=== PATIENT | female | born 1975 | race Hispanic/Latino ===

== ENCOUNTER 2021-12-14 23:20 | Emergency (ER) | payer OTHER ==
--- OUTSIDE RECORDS SUMMARY | 2021-12-14 23:25 | XMS REPORT | Continuity of Care Document ---
:1975 Author Organization [facility] t Address [facility] [address] [place] [address] Care Team Providers Name Role Phone LAZARO Primary Care Physician Unavailable Lazaro Attending Clinician Unavailable Shane Attending Clinician Unavailable Alivia Rose Attending Clinician Unavailable MATTI Attending Clinician Unavailable Matti ALFARO Attending Clinician Doctor Unassigned, Name Attending Clinician Unavailable Jose SHAIKH, L Attending Clinician Unavailable EBRAHIM Attending Clinician Unavailable Only, Db Test Attending Clinician Unavailable Unknown Attending Clinician Unavailable Radiology Attending Clinician Unavailable RADIOLOGY Attending Clinician Unavailable Jose Angel ALFARO Attending Clinician Yany ALFARO M Attending Clinician Pob1, Care Clinic Attending Clinician Unavailable JOSE ANGEL Attending Clinician Unavailable MATTI Admitting Clinician Unavailable Payers Payer Name Policy Type Policy Number Effective Date Expiration Date S jasen RODNEY FROM [id number] 2021 [facility] 00:00:00 Problems Condition Condition Condition Status Onset Resolution Last Treating Co mments Source Name Details Category Date Date Treatment Clinician Date No known No known Disease Unive rs active active ity of problems problems [facility] Allergies, Adverse Reactions, Alerts Allergy Allergy Status Severity Reaction(s) Onset Inactive Treating Comm ents Source Name Type Date Date Clinician NO KNOWN Drug Active Univers ALLERGIE Class ity of S [facility] Social History Social Habit Start Date Stop Date Quantity Comments Source Exposure to Not sure [facility] SARS-CoV-2 (event) Medica l Branch Tobacco use and 2020-01-14 2020-01-14 Never used [facility] exposure 00:00:00 00:00:00 Medical Branch Sex Ass[birth year] [facility] 00:00:00 00:00:00 Medical Branch Smoking Status Start Date Stop Date Source Never smoker [facility] Unknown if ever smoked [facility] Medications Ordered Filled Start Stop Current Ordering Indication Dosage Frequency Signature Comments Components Source Medication Medication Date Date Medication? Clinician (SIG) Name Name iopamidol 2021- No [id number] 100mL 100 mL, Univers (ISOVUE 11-24 Intravenou ity o f 370-500 mL) 11:15: 10:05 s, ONCE, 1 [place] injection 00 :00 dose, On Medica l 100 mL Fri Branch 11/24/21 at 0515, Routine morpHINE 2021- No 4mg 4 mg, Slow Un zana injection 4 11-24 IV Push, ity of mg 09:30: 08:33 ONCE, 1 [place] 00 :00 dose, On Medical Fri Branch 11/24/21 at 0330, STAT ondansetron 2021- No 4mg 4 mg, Slow Univers (ZOFRAN 11-24 IV Push, ity of (PF)) 09:30: 08:33 ONCE, 1 [place] injection 4 00 :00 dose, On Medi ivan mg Fri Branch 11/24/21 at 0330, KATIE NaCl 0.9% 2021- No 1000mL at 999 Uni vers (NS) bolus 11-24 mL/hr, ity of infusion 09:30: 10:35 1,000 mL, Rick as 1,000 mL 00 :00 IV Medical Infusion, Branch ONCE, 1 dose, On 11/24/21 at 0330, KATIE ondansetron Yes [id number] 4mg Take 1 Univers 4 mg 11-24 tablet by ity of disintegrat 00:00: mouth [place] ing tablet 00 every 4 Medica l (four) Branch hours as needed for Nausea and Vomiting (N/V). pantoprazol Yes [id number] 40mg Take 1 Univers e 2-11 tablet by ity of (PROTONIX) 00:00: mouth [place] 40 mg EC 00 daily. Medical tablet Branch cetirizine 2019-0 Yes [id number] 10mg Take 1 U nivers (ZYRTEC) 10 4-02 tablet by ity of mg tablet 00:00: mouth [place] 00 daily. Medical Branch fluticasone 2019-0 Yes [id number] 1{spray Use 1 Univers propionate 4-02 } [place] in ity o f 50 00:00: each [place] mcg/actuati 00 nostril Medic al on nasal daily. Branch spray montelukast 2019-0 Yes [id number] 10mg Take 1 Univers (SINGULAIR) 4-02 tablet by ity of 10 mg 00:00: mouth [place] tablet 00 daily. Medical Branch cetirizine 2019-0 Yes [id number] 10mg Take 1 U nivers (ZYRTEC) 10 4-02 tablet by ity of mg tablet 00:00: mouth [place] 00 daily. Medical Branch fluticasone 2019-0 Yes [id number] 1{spray Use 1 Univers propionate 4-02 } [place] in ity o f 50 00:00: each [place] mcg/actuati 00 nostril Medic al on nasal daily. Branch spray montelukast 2019-0 Yes [id number] 10mg Take 1 Univers (SINGULAIR) 4-02 tablet by ity of 10 mg 00:00: mouth [place] tablet 00 daily. Medical Branch cetirizine 2019-0 Yes [id number] 10mg Take 1 U nivers (ZYRTEC) 10 4-02 tablet by ity of mg tablet 00:00: mouth [place] 00 daily. Medical Branch fluticasone 2019-0 Yes [id number] 1{spray Use 1 Univers propionate 4-02 } [place] in ity o f 50 00:00: each [place] mcg/actuati 00 nostril Medic al on nasal daily. Branch spray montelukast 2019-0 Yes [id number] 10mg Take 1 Univers (SINGULAIR) 4-02 tablet by ity of 10 mg 00:00: mouth [place] tablet 00 daily. Medical Branch cetirizine 2019-0 Yes [id number] 10mg Take 1 U nivers (ZYRTEC) 10 4-02 tablet by ity of mg tablet 00:00: mouth [place] 00 daily. Medical Branch fluticasone 2020-0 Yes [id number] 1{spray Use 1 Univers propionate 4-02 } [place] in ity o f 50 00:00: each [place] mcg/actuati 00 nostril Medic al on nasal daily. Branch spray montelukast 2020-0 Yes [id number] 10mg Take 1 Univers (SINGULAIR) 4-02 tablet by ity of 10 mg 00:00: mouth [place] tablet 00 daily. Medical Branch cetirizine 2020-0 Yes [id number] 10mg Take 1 U nivers (ZYRTEC) 10 4-02 tablet by ity of mg tablet 00:00: mouth [place] 00 daily. Medical Branch fluticasone 2020-0 Yes [id number] 1{spray Use 1 Univers propionate 4-02 } [place] in ity o f 50 00:00: each [place] mcg/actuati 00 nostril Medic al on nasal daily. Branch spray montelukast 2020-0 Yes [id number] 10mg Take 1 Univers (SINGULAIR) 4-02 tablet by ity of 10 mg 00:00: mouth [place] tablet 00 daily. Medical Branch cetirizine 2020-0 Yes [id number] 10mg Take 1 U nivers (ZYRTEC) 10 4-02 tablet by ity of mg tablet 00:00: mouth [place] 00 daily. Medical Branch fluticasone 2020-0 Yes [id number] 1{spray Use 1 Univers propionate 4-02 } [place] in ity o f 50 00:00: each [place] mcg/actuati 00 nostril Medic al on nasal daily. Branch spray montelukast 2020-0 Yes [id number] 10mg Take 1 Univers (SINGULAIR) 4-02 tablet by ity of 10 mg 00:00: mouth [place] tablet 00 daily. Medical Branch cetirizine 2020-0 Yes [id number] 10mg Take 1 U nivers (ZYRTEC) 10 4-02 tablet by ity of mg tablet 00:00: mouth [place] 00 daily. Medical Branch fluticasone 2020-0 Yes [id number] 1{spray Use 1 Univers propionate 4-02 } [place] in ity o f 50 00:00: each [place] mcg/actuati 00 nostril Medic al on nasal daily. Branch spray montelukast 2020-0 Yes [id number] 10mg Take 1 Univers (SINGULAIR) 4-02 tablet by ity of 10 mg 00:00: mouth [place] tablet 00 daily. Medical Branch cetirizine 2020-0 Yes [id number] 10mg Take 1 U nivers (ZYRTEC) 10 4-02 tablet by ity of mg tablet 00:00: mouth [place] 00 daily. Medical Branch fluticasone 2020-0 Yes [id number] 1{spray Use 1 Univers propionate 4-02 } [place] in ity o f 50 00:00: each [place] mcg/actuati 00 nostril Medic al on nasal daily. Branch spray montelukast 2020-0 Yes [id number] 10mg Take 1 Univers (SINGULAIR) 4-02 tablet by ity of 10 mg 00:00: mouth [place] tablet 00 daily. Medical Branch cetirizine 2019-0 Yes [id number] 10mg Take 1 U nivers (ZYRTEC) 10 4-02 tablet by ity of mg tablet 00:00: mouth [place] 00 daily. Medical Branch fluticasone 2020-0 Yes [id number] 1{spray Use 1 Univers propionate 4-02 } [place] in ity o f 50 00:00: each [place] mcg/actuati 00 nostril Medic al on nasal daily. Branch spray montelukast 2020-0 Yes [id number] 10mg Take 1 Univers (SINGULAIR) 4-02 tablet by ity of 10 mg 00:00: mouth [place] tablet 00 daily. Medical Branch cetirizine 2020-0 Yes [id number] 10mg Take 1 U nivers (ZYRTEC) 10 4-02 tablet by ity of mg tablet 00:00: mouth [place] 00 daily. Medical Branch fluticasone 2020-0 Yes [id number] 1{spray Use 1 Univers propionate 4-02 } [place] in ity o f 50 00:00: each [place] mcg/actuati 00 nostril Medic al on nasal daily. Branch spray montelukast 2020-0 Yes [id number] 10mg Take 1 Univers (SINGULAIR) 4-02 tablet by ity of 10 mg 00:00: mouth [place] tablet 00 daily. Medical Branch cetirizine 2020-0 Yes [id number] 10mg Take 1 U nivers (ZYRTEC) 10 4-02 tablet by ity of mg tablet 00:00: mouth [place] 00 daily. Medical Branch fluticasone 2020-0 Yes [id number] 1{spray Use 1 Univers propionate 4-02 } [place] in ity o f 50 00:00: each [place] mcg/actuati 00 nostril Medic al on nasal daily. Branch spray montelukast 2019-0 Yes [id number] 10mg Take 1 Univers (SINGULAIR) 4-02 tablet by ity of 10 mg 00:00: mouth [place] tablet 00 daily. Medical Branch cetirizine 2019-0 Yes [id number] 10mg Take 1 U nivers (ZYRTEC) 10 4-02 tablet by ity of mg tablet 00:00: mouth [place] 00 daily. Medical Branch fluticasone 2019-0 Yes [id number] 1{spray Use 1 Univers propionate 4-02 } [place] in ity o f 50 00:00: each [place] mcg/actuati 00 nostril Medic al on nasal daily. Branch spray montelukast 2019-0 Yes [id number] 10mg Take 1 Univers (SINGULAIR) 4-02 tablet by ity of 10 mg 00:00: mouth [place] tablet 00 daily. Medical Branch azithromyci 2020-0 2020- No [id number] 250mg Take 1 Univers n 3-24 04-02 tablet by ity of (ZITHROMAX 00:00: 00:00 mouth [place] Z-ELMO) 250 00 :00 daily. Medical mg tablet Take 500 Branch mg day 1, then 250 mg days 2 to 5. Ibuprofen Ibuprofen 2019-0 Yes Yari [address] [facility] [facility] 1-07 [place] with food [facility] - 00:[facility]: or milk as Memoria 00 needed l Outpati ent Clinics No known No Univers medications [facility] [place] [facility] Vital Signs Vital Name Observation Time Observation Value Comments Source Heart rate 2021-11-24 10:45:00 80 /min [facility] Respiratory rate 2021-11-24 10:45:00 18 /min [facility] Oxygen saturation in 2021-11-24 10:45:00 94 /min [facility] Arterial blood by [facility] Pulse oximetry Branch Systolic blood 2021-11-24 10:15:00 131 mm[Hg] Marisel sit of pressure [facility] Diastolic blood 2021-11-24 10:15:00 81 mm[Hg] [facility] Body temperature 2021-11-24 08:22:00 37 Lakisha [facility] [place] [facility] Body height 2021-11-24 08:22:00 162.6 cm Universi ty of [facility] Body weight 2021-11-24 08:22:00 108.863 kg Universi ty [facility] BMI 2021-11-24 08:22:00 41.20 kg/m2 Universi ty [facility] Systolic blood 2020-01-14 13:45:00 130 mm[Hg] Univer sity of [facility] Diastolic blood 2020-01-14 13:45:00 85 mm[Hg] Unive [facility] Heart rate 2020-01-14 13:45:00 96 /min Universi ty [facility] Body temperature 2020-01-14 13:45:00 36.89 Lakisha [facility] Respiratory rate 2020-01-14 13:45:00 18 /min [facility] [place] [facility] Body height 2020-01-14 13:45:00 162.6 cm Universi ty of [facility] Body weight 2020-01-14 13:45:00 99.791 kg Universi ty [facility] BMI 2020-01-14 13:45:00 37.76 kg/m2 Universi ty [facility] Oxygen saturation in 2020-01-14 13:45:00 97 /min [facility] Arterial blood by [facility] Pulse oximetry Branch Procedures Procedure Date / Time Performing Clinician Source Performed CT ABDOMEN PELVIS W 2021-11-24 10:07:21 Maurice Chino [facility] CONTRAST [facility] LIPASE 2021-11-24 08:32:00 Maurice Chino [facility] TROPONIN I 2021-11-24 08:32:00 Maurice Chino [facility] COMP. METABOLIC PANEL 2021-11-24 08:32:00 Maurice [facility]ino [facility] ([id number]) [facility] CBC WITH DIFF 2021-11-24 08:32:00 Maurice Chino [facility] PROTHROMBIN TIME / INR 2021-11-24 08:32:00 Maurice Chino [facility] ACTIVATED PARTIAL 2021-11-24 08:32:00 Maurice Chino [facility] NOTICE OF PRIVACY 2021-11-24 08:12:32 Doctor Unassigned, No Univ [facility] PRACTICES [facility] CONSENT/REFUSAL FOR 2021-11-24 08:11:30 Doctor Unassigned, No [facility] BI SCREENING 2021-06-21 13:24:17 Requisition, Paper [facility] TOMOSYNTHESIS BILATERAL [facility] Branch ASSIGNMENT OF BENEFITS 2021-06-16 15:21:10 Doctor Unassigned, No [facility] US ABDOMEN COMPLETE 2020-04-25 19:27:14 Requisition, Paper [facility] ASSIGNMENT OF BENEFITS 2020-04-19 16:35:30 Doctor Unassigned, No [facility] Encounters Start End Encounter Admission Attending Care Care Encounter Source Date/Time Date/Time Type Type Clinicians Facility Department ID 2021-11-30 Outpatient Almaraz, [facility] [id number] 10:08:01 [facility] 2021-11-09 Outpatient Almaraz, [facility] [id number] 10:16:01 [facility] 2021-11-08 Outpatient Almaraz, [facility] [id number] 14:39:07 [facility] 2021-11-08 Outpatient Almaraz, [facility] [id number] 14:38:17 [facility] 2021-11-08 Outpatient Almaraz, [facility] [id number] 14:28:05 [facility] 2021-11-08 Outpatient Almaraz, [facility] [id number] 14:27:46 [facility] 2021-11-08 Outpatient Almaraz, [facility] [id number] 14[facility]20:50 Jacquelin [id number] [facility] 2021-11-08 Outpatient Lazaro, [facility] [id number] 14:20:33 Jacquelin [id number] [facility] 2021-11-08 Outpatient [facility] [id number] 14:15:55 [id number] [facility] 2021-11-08 Outpatient Shane, [facility] [id number] 11:15:47 Yari [id number] [facility] 2021-11-08 Outpatient Shane, [facility] [id number] 11:12:37 Yari [id number] [facility] 2021-11-08 Outpatient Milton, [facility] [id number] 11:10:16 Elizabeth 89940 [facility] 2021-11-08 Outpatient [facility] [id number] 11:09:28 [id number] [facility] 2021-11-08 Outpatient [facility] [id number] 11:07:49 [id number] [facility] 2021-11-08 Outpatient [facility] [id number] 10:58:37 [id number] [facility] 2021-12-13 2021-12-13 ambulatory [facility] [id number] [facility]00 [facility] 2021-12-13 2021-12-13 ambulatory [facility] [id number] [facility] 2021-11-24 2021-11-24 Emergency X MATTI NDYANIRA ERT [id number] Univers 02:17:00 04:54:00 MAURICE whitehead [facility] 2021-11-24 2021-11-24 Emergency BRIANNE Chino [id number] Univers 02:17:00 04:54:00 Maurice LANDEROSMAYRA [id number] i ty of DEPORT [id number] [facility] [phone] [facility] 084 Branch 2021-11-24 2021-11-24 Orders Doctor LORENZO [id number] Univers 00:00:00 00:00:00 Only Unassigned, SANDY [id number] ity of [place] [id number] Rick as [id number] [facility] 009 Branch 2021-11-15 2021-11-15 ambulatory [facility] [id number] [facility] 2021-11-10 2021-11-10 ambulatory [facility] [id number] [facility] 2021-11-09 2021-11-09 ambulatory [facility] [id number] [facility]00 [facility] 2021-11-09 2021-11-09 ambulatory [facility] [id number] [facility]00 [facility] 2021-11-08 2021-11-08 ambulatory [facility] [id number] [facility]00 [facility] 2021-11-07 2021-11-07 ambulatory [facility] [id number] [facility] 2021-10-18 2021-10-18 Telephone MAURA Garcia [id number] Univers 00:00:00 00:00:00 Jaziel DELGADO [id number] ity of [facility] [id number] Rick as [id number] [facility] 019 Branch 2021-10-17 2021-10-17 Outpatient Wilfredo TORREZ [facility] [id number] Univers 11:15:00 11:42:00 RANIA ity of [facility] 2021-10-17 2021-10-17 Laboratory Only, Ang Db Test [facility] 1.2.8 40.114 [id number] Univers 11:15:00 11:30:00 Only Unknown, Attending HEALTH [id number] ity of [place] [id number] Rick as MIS?BLEA [id number] Md kat [address] MEDICAL OFFICE BUILDING 2021-10-17 2021-10-17 Outpatient R [facility] [id number] Univers 11:15:00 11:15:00 [id number] ity [facility] 2021-10-04 2021-10-04 ambulatory [facility] [id number] [facility] 00[facility]:00 [facility] Outpati ent Clinics 2021-09-18 2021-09-18 ambulatory [facility] [id number] [facility] 00:[facility]:00 [facility] Clinics 2021-06-21 2021-06-21 Hospital Radiology [facility] [id number] Univers 07:46:39 23:59:00 Encounter [place] [id number] ity of [place] 4.2.7.2.686 [place] [facility] [id number] [address] 2021-06-21 2021-06-21 Outpatient R [facility] [id number] Univers 00:00:00 00:00:00 [id number] ity [facility] 2021-06-21 2021-06-21 Outpatient R RADIOLOGY [facility] [id number] Univers 00:00:00 00:00:00 ity of [facility] 2021-06-16 2021-06-16 Outpatient R RADIOLOGY [facility] [id number] Univers 00:00:00 00:00:00 [id number] ity [facility] 2021-06-16 2021-06-16 Outpatient R RADIOLOGY [facility] [id number] Univers 00:00:00 00:00:00 ity [facility] 2021-06-16 2021-06-16 Orders Doctor MAURA 1.2.840.114 [id number] Univers 00:00:00 00:00:00 Only Unassigned, SANDY [id number] ity of [place] [facility] [id number] Rick as [id number] [address] 2020-04-25 2020-04-25 [facility] 1.2.840.114 [id number] Univers 13:30:00 23:59:00 Encounter Simeon Tristen [id number] ity of [place] 4.2.7.2.686 [place] [facility] [id number] [address] 2020-04-20 2020-04-20 Outpatient R [facility] [id number] Univers 00:00:00 00:00:00 [id number] ity of [facility] 2020-04-20 2020-04-20 Outpatient R [facility] [id number] Univers 00:00:00 00:00:00 ity of [facility] 2020-04-19 2020-04-19 Orders Doctor MAURA 1.2.840.114 [id number] Univers 00:00:00 00:00:00 Only Unassigned, SANDY [id number] ity of [place] [facility] [id number] Rick as [id number] [address] 2020-01-15 2020-01-15 [facility] 1.2.840.114 [id number] Univers 00:00:00 00:00:00 , Tatyana [facility] [id number] ity of [place] [id number] Rick as Professio [id number] Md dical nal [address] 2020-01-14 2020-01-14 Urgent Pob1, Acute Care Clinic [facility] 1. 2.840.114 [id number] Univers 08:31:58 08:51:58 Care Francisco JaviersorinSimeon dailey [id number] ity of [place] [id number] Rick as Professio [id number] Md dical nal [address] 2020-01-14 2020-01-14 [facility] [id number] [facility] 08:40:00 08:40:00 PETER ity of [facility] 2020-01-13 2020-01-13 Patient Doctor [facility] 1.2.840.114 [id number] Univers 00:00:00 00:00:00 Secure Msg Unassigned, Health [id number] ity of [place] [facility] [id number] Te [facility] Care [id number] [place] [address] Branch 2020-01-11 2020-01-11 [facility] [id number] 13:00:00 13:00:00 [facility] ent [facility] 2019-12-21 2019-12-21 [facility] [id number] 11:00:00 11:00:00 [facility] ent [facility] 2019-11-30 2019-11-30 [facility] [id number] 11:15:00 11:15:00 [facility] 2019-10-28 2019-10-28 [facility] [id number] 10:02:00 10:02:00 [facility] 2019-10-20 2019-10-20 [facility] [id number] 11:00:00 11:00:00 [facility] Results Test Description Test Time Test Comments Results Result Comments Source TROPONIN I 2021-11-24 09:28:01 Test Item Value Reference Range Interpretation Comme nts TROPONIN I (test code = 0.003 ng/mL See_Comment [Au tomated message] The [id number]) system which ge nerated this result tra nsmitted reference range : <=0.034. The reference r mayuri was not used to int erpret this result as normal/abnormal . BRENT (test code = BRENT) Reference (Normal) Range (defined by the 99th percentile reference limit): <= 0.034 ng/mL Note: Cardiac troponin begins to rise 3-4 hours after the onset of ischemia. Repeat in 4-6 hours if the sample was drawn within 3-4 hours of the onset of the symptom and found normal. Diagnosis of myocardial injury is made with acute changes in cTn concentrations with at least one serial sample above the 99th percentile upper reference limit (URL), taken together with the patient's clinical presentation. Biotin has been reported to cause a negative bias, interpret results relative to patient's use of biotin. Lab Interpretation Normal (test code = 88946-1) [facility]. METABOLIC PANEL (21205)2021-11-24 09:16:39 Test Item Value Reference Range Interpretation Comments NA (test code = 137 mmol/L 135-145 0805243788) K (test code = 4.2 mmol/L 3.5-5.0 7107903613) CL (test code = 103 mmol/L 98-108 5553617030) CO2 TOTAL (test code = 27 mmol/L 23-31 0660836393) AGAP (test code = 2-16 3765029317) BUN (test code = 9 mg/dL 7-23 5546578457) GLUCOSE (test code = 133 mg/dL 70-110 H 7120404869) CREATININE (test code = 0.49 mg/dL 0.50-1.04 L 6689606117) TOTAL BILI (test code = 0.5 mg/dL 0.1-1.9 4733474047) CALCIUM (test code = 8.8 mg/dL 8.6-10.6 8896921329) T PROTEIN (test code = 7.5 g/dL 6.3-8.2 1758219177) ALBUMIN (test code = 4.2 g/dL 3.5-5.0 7395006229) ALK PHOS (test code = 182 U/L 34-122 H 8942498104) ALTv (test code = 78 U/L 5-35 H 1742-6) AST(SGOT) (test code = 82 U/L 13-40 H 0818350776) eGFR (test code = mL/min/1.73m2 2841050429) BRENT (test code = BRENT) Association of Glomerular Filtration Rate (GFR) and Staging of Kidney Disease* + --+ --+ ------+| GFR (mL/min/1.73 m2) ?| With Kidney Damage ?| ?Without Kidney Damage+ --------+ --------+ +| ?>90 ?| ?Stage one ?| ? Normal ?+ ---+ ---+ -------+| ?60-89 ?| ?Stage two ?| ? Decreased GFR ? + --+ --+ ------+| ?30-59 ?| ?Stage three ?| ? Stage three ? + --+ --+ ------+| ?15-29 ?| ?Stage four ? | ? Stage four ?+ ---+ ---+ -------+| ?<15 (or dialysis) ? ?| ?Stage five ? | ? Stage five ?+ ---+ ---+ -------+ *Each stage assumes the associated GFR level has been in effect for at least three months. ?Stages 1 to 5, with or without kidney disease, indicate chronic kidney disease. Notes: Determination of stages one and two (with eGFR >59mL/min/1.73 m2) requires estimation of kidney damage for at least three months as defined by structural or functional abnormalities of the kidney, manifested by either:Pathological abnormalities or Markers of kidney damage (including abnormalities in the composition of the blood or urine or abnormalities in imaging tests). Lab Interpretation Abnormal (test code = 97622-5) [facility]49:55 Test Item Value Reference Range Interpretation Comments LIPASE (test code = 2629570347) 141 U/L 0-220 Lab Interpretation (test code = Normal 60765-6) [facility] THRMPLAS [id number] 08:47:34 Test Item Value Reference Range Interpretation Comments APTT Patient (test See_Comment [Automat ed code = 3173-2) message] The system which generated this result transmitted reference range : 23 - 38 Seconds . The reference range was not used to interpr et this result as normal/abnormal . BRENT (test code = BRENT) The [facility] patient population mean normal value for aPTT is 30 seconds. Lab Interpretation Normal (test code = 32863-3) [facility]PROT[facility] / [id number] 08:45:34 Test Item Value Reference Range Interpretation Comments PROTIME PATIENT (test See_Comment [Auto mated message] code = 5964-2) The system wh ich generated this result transmitted ref erence range: 12.0 - 1 4.7 Seconds. The re ference range was not u sed to interpret this result as normal/abnor mal. INR (test code = 6301-6) Nor mal INR <1.1; Warfarin Therap eutic range 2.0 to 3. 0 or 2.5 to 3.5, dep ending upon the indica tions. Lab Interpretation (test Normal code = 25805-4) [facility] WITH [id number] 08:37:53 Test Item Value Reference Range Interpretation Comments WBC (test code = See_Comment [Automated 3590-2) message] The sy stem which generated this result transmitted reference range : 4.30 - 11.10 10*3/?L. The reference range was not used to interpret this result as normal/abnormal . RBC (test code = See_Comment [Automated 469-8) message] The sy stem which generated this result transmitted reference range : 3.93 - 5.25 10*6/?L. The reference range was not used to interpret this result as normal/abnormal . HGB (test code = 12.4 g/dL 11.6-15.0 718-7) HCT (test code = 37.4 % 35.7-45.2 4544-3) MCV (test code = 83.5 fL 80.6-95.5 787-2) MCH (test code = 27.7 pg 25.9-32.8 785-6) MCHC (test code = 33.2 g/dL 31.6-35.1 786-4) RDW-SD (test code = 44.5 fL 39.0-49.9 15808-7) RDW-CV (test code = 14.6 % 12.0-15.5 788-0) PLT (test code = See_Comment [Automated 777-3) message] The sy stem which generated this result transmitted reference range : 166 - 358 10*3/ ?L. The reference r mayuri was not used to interpret this result as normal/abnormal . MPV (test code = 8.8 fL 9.5-12.9 L 04681-5) NRBC/100 WBC (test See_Comment [Automat ed code = 4559226996) message] The system which generated this result transmitted reference range : 0.0 - 10.0 /100 WBCs. The refer ence range was not u sed to interpret th is result as normal/abnormal . NRBC x10^3 (test code <0.01 See_Comment [Auto mated = [id number]) message] The s ystem which generated this result transmitted reference range : 10*3/?L. The reference range was not used to interpret this result as normal/abnormal . GRAN MAT (NEUT) % 52.5 % (test code = 770-8) IMM GRAN % (test code 0.40 % = 5784449962) LYMPH % (test code = 38.1 % 736-9) MONO % (test code = 5.9 % 5905-5) EOS % (test code = 2.6 % 713-8) BASO % (test code = 0.5 % 706-2) GRAN MAT x10^3(ANC) 4.00 10*3/uL 1.88-7.09 (test code = 0544458619) IMM GRAN x10^3 (test 0.03 10*3/uL 0.00-0.06 code = 0455053669) LYMPH x10^3 (test code 2.90 10*3/uL 1.32-3.29 = 731-0) MONO x10^3 (test code 0.45 10*3/uL 0.33-0.92 = 742-7) EOS x10^3 (test code = 0.20 10*3/uL 0.03-0.39 711-2) BASO x10^3 (test code 0.04 10*3/uL 0.01-0.07 = 704-7) Lab Interpretation Abnormal (test code = 70646-1) [facility] SCREENING TOMOSYNTHESIS [id number] 20:33:07Examination:BI SCREENING TOMOSYNTHESIS BILATERAL History:Patient is 45 year old and is seen for: ?Encounter for screening mammogram for malignant neoplasm of breast. Computer-aided detection (CAD) utilized. Comparisons: 08/05/2017 SCREENING DIGITAL BREAST JOSHUA Findings:The breasts are heterogeneously dense, which may obscure small masses. There is no evidence of suspicious masses, calcifications, or other abnormal findings. Impression:No mammographic evidence of malignancy. Recommendation:Annual mammographic follow- up BI-RADS Category: Both 1 - NegativeUnCHRIST[facility] SpringsBI SCREENING TOMOSYNTHESIS [id number] 20:33:07Examination:BI SCREENING TOMOSYNTHESIS BILATERAL History:Patient is 45 year old and is seen for: ?Amadeo ounter for screening mammogram for malignant neoplasm of breast. Computer-aided detection (CAD) utilized. Comparisons: 08/05/2017 SCREENING DIGITAL BREAST JOSHUA Findings:The breasts are heterogeneously dense, which may obscure small masses. There is no evidence of suspicious masses, calcifications, or other abnormal findings. Impression:No mammographic evidence of malignancy. Recommendation:Annual mammographic follow-up BI-RADS Category: Both 1 - [facility]UnSt[facility] ABDOMEN [id number] 20:32:12 Diffuse increase in hepatic parenchymal echogenicity is noted suggestive ofhepatic steatosis. No focal hepatic lesion is identified. No cholelithiasis or sonographic signs of cholecystitis. Preliminary Report Dictated by Resident: Vini Anguiano MD., have reviewed this study andagree with the abovereport. EXAM: US ABDOMEN COMPLETE HISTORY: 44 years-old Female with Abnormal results of liver function. TECHNIQUE: Complete abdominal ultrasound was performed. Main portal veinwas evaluated with color Doppler imaging. Land Leasing Examiner images wereobtained for the record. COMPARISON: None FINDINGS: LIVER: Length: 17.4 cm.Parenchyma: Normal hepatic echotexture. Mild increase in hepaticparenchymal echogenicity is suggested. No focal lesion is detected.Portal vein: Hepatopetal flow present in the main portal vein. The MPVdiameter is 1.2 cm. GALLBLADDER: Contracted.No cholelithiasis.Normal gallbladder wall thickness, 3 mm.Negative Costello's sign. BILE DUCTS:No intra- or extrahepatic biliary dilatation..Common Duct diameter: 4 mm. PANCREAS: Pancreas completely obscured due to shadowing from bowel gas. SPLEEN: The spleen is upper limit of normal in size measuring 12.7 cm. Punctatesplenic echogenic foci are noted, suggestive of calcified granulomas. KIDNEYS:RIGHT:Size: ?12.5 x 4.4 x 4.7 cm.Parenchyma: Normal renal cortical echogenicity and thickness. No focalsolid or cystic renal lesions are detected.Collecting System: No hydronephrosis. LEFT:Size: 12.4 x 5.4 x 5.1 cm.Parenchyma:Normal renal cortical echogenicity and thickness. No focal solidor cystic renal lesions are detected.Collecting System: No hydronephrosis. AORTA:Abdominal aorta is upper limit of normal in caliber where visualized. [facility], Radiant Results Inft User - 04/25/2020 3:33 PM CDT EXAM: US ABDOMEN COMPLETEHISTORY: 44 years-old Female with Abnormal results of liver function.TECHNIQUE: Complete abdominal ultrasound was performed. Main portal veinwas evaluated with color Doppler imaging. Land Leasing Examiner images wereobtained for the record.COMPARISON: NoneFINDINGS: LIVER: Length: 17.4 cm.Parenchyma: Normal hepatic echotexture. Mild increase in hepaticparenchymal echogenicity is suggested. No focal lesion is detected.Portal vein: Hepatopetal flow present in the main portal vein. The MPVdiameter is 1.2 cm.GALLBLADDER: Contracted.No cholelithiasis.Normal gallbladder wall thickness, 3 mm.Negative Costello's sign. BILE DUCTS:No intra- or extrahepatic biliary dilatation..Common Duct diameter: 4 mm.PANCREAS: Pancreas completely obscured due to shadowing from bowel gas.SPLEEN: The spleen is upper limit of normal in size measuring 12.7 cm. Punctatesplenic echogenic foci are noted, suggestive of calcified granulomas.KIDNEYS:RIGHT:Size: 12.5 x 4.4 x 4.7 cm.Parenchyma: Normal renal cortical echogenicity and thickness. No focalsolid or cystic renal lesions are detected.Collecting System: No hydronephrosis.LEFT:Size: 12.4 x 5.4 x 5.1 cm.Parenchyma:Normal renal cortical echogenicity and thickness. No focal solidor cystic renal lesions are detected.Collecting System: No hydronephrosis.AORTA:Abdominal aorta is upper limit of normal in caliber where visualized.IMPRESSIONDiffuse increase in hepatic parenchymal echogenicity is noted suggestive ofhepatic steatosis. No focal hepatic lesion is identified.No cholelithiasis or sonographic signs of cholecystitis.Preliminary Report Dictated by Resident: Vini Jewell MD., have reviewed this study and agree with the abovereport.[facility]"
[2021-12-15] MEDS ORDERED: ONDANSETRON 4 MG (ODT) TAB ONE (00:22)
[2021-12-15] MEDS ORDERED: ALBUTEROL 2.5 MG/3 ML NEB SOL ONE (00:22)
[2021-12-15] MEDS ORDERED: HYDROCODONE/CHLORPHEN 5 ML/OSYR ONE (00:22)
[2021-12-15] MEDS ORDERED: IPRATROPIUM BROM 0.5MG/2.5ML ONE (00:23)
[2021-12-15 01:10] LABS: SARS-COV-2 RT PCR NEGATIVE (NEGATIVE)
--- NOTE | 2021-12-15 01:18 | ER ---
Nurse's Notes [facility] Name: Chiara Urbano Age: 46 yrs Sex: Female : 1975 Arrival Date: 12/14/2021 Time: 23:25 Bed 19 Private MD: Diagnosis: Acute bronchitis, unspecified Presentation: 12/14 23:42 Chief complaint: Patient states: she has had a cough and congestion since last Saturday bb had a virtual appointment yesterday and started on medications today also Covid swab was negative yesterday. Pt came in because she is having sharp pain in her wrists and back when coughing. Coronavirus screen: congestion, cough unrelated to allergies. Ebola Screen: No symptoms or risks identified at this time. Initial Sepsis Screen: Does the patient meet any 2 criteria? No. Patient's initial sepsis screen is negative. Does the patient have a suspected source of infection? No. Patient's initial sepsis screen is negative. Risk Assessment: Do you want to hurt yourself or someone else? Patient reports no desire to harm self or others. Onset of symptoms was December 08, 2021. 23:42 Method Of Arrival: Ambulatory 23:42 Acuity: CLAUDIA 3 bb 23:48 Note pt started on Loratidine, Fluoxetine, Benzonatate, Amox-Clauv, Guafeinisin, today. bb Triage Assessment: 12/15 00:09 General: Appears in no apparent distress. Behavior is calm, cooperative. julio césar 00:10 Pain: Denies pain. 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 - Social history:: Smoking status: Patient denies any tobacco usage or history of. Screenin/04 00:00 Abuse screen: Denies threats or abuse. Denies injuries from another. Nutritional julio césar screening: No deficits noted. Tuberculosis screening: No symptoms or risk factors identified. Fall Risk None identified. Assessment: 12/14 23:47 Reassessment: No changes from previously documented assessment. Pt is resting julio césar comfortably, with her daughter at bedside, in NAD. 23:55 Reassessment: The pt was seen yesterday, by her PCP, took one dose of meds, this julio césar morning. She was prescribed, fluticasone 50mcg q 12, Mucus ER 600mg, Benzonatate 100mg tid, Loratadine 10mg daily and Amox/K Clav 875/125mg bid. She stated she had taken the medications, but some were unopened. She states that "when I cough, it hurts right here (bilateral forearms) and here (shoulder)." I had her leave the medications out, so the provider could see what she is suppose to be taking. Vital Signs: 23:42 BP 133 / 78; Pulse 100; Resp 18 S; Temp 98.4(O); Pulse Ox 96% on R/A; Weight 108.86 kg bb (R); Height 5 ft. 4 in. (162.56 cm) (R); Pain 9/10; 23:47 BP 125 / 74; Pulse 90; Resp 18; Temp 98.7; Pulse Ox 100% on R/A; julio césar 12/15 01:08 BP 139 / 80; Pulse 90; Resp 18; Pulse Ox 98% on R/A; Pain 0/10; julio césar 12/14 23:42 Body Mass Index 41.20 (108.86 kg, 162.56 cm) bb ED Course: 12/14 23:25 Patient arrived in ED. wm 23:35 Augie Valle PA is PHCP. cp 23:35 Emili Mackenzie MD is Attending Physician. cp 23:41 Joyce Casas, RN is Primary Nurse. julio césar 23:44 Triage completed. bb 23:44 Arm band placed on Patient placed in an exam room, on a stretcher, on pulse oximetry. bb Family accompanied patient. 12/15 00:00 Bed in low position. Call light in reach. Side rails up X 1. Adult w/ patient. Pulse ox julio césar on. 00:00 No provider procedures requiring assistance completed. julio césar 00:27 COVID-19/FLU A+B (Document "Date of Onset" if Symptomatic) Sent. julio césar 00:28 Patient moved to radiology via wheelchair. julio césar 00:36 XRAY Chest Pa And Lat (2 Views) In Process Unspecified. EDMS 00:39 COVID-19/FLU A+B (Document "Date of Onset" if Symptomatic) Sent. julio césar 01:42 Patient did not have IV access during this emergency room visit. julio césar Administered Medications: 00:15 Drug: Tussionex Pennkinetic ER (chlorpheniramine-hydrocodone) Suspension 5 ml Route: PO;julio césar 01:08 Follow up: Response: No adverse reaction julio césar 00:15 Drug: Zofran (Ondansetron) 4 mg Route: PO; julio césar 01:07 Follow up: Response: No adverse reaction julio césar 00:30 Drug: Albuterol - atroVENT (ipratropium) (3:1) (2.5 mg - 0.5 mg) 3 ml Route: Nebulizer; julio césar 01:07 Follow up: Response: No adverse reaction julio césar Outcome: 00:10 Condition: stable julio césar 01:17 Discharge ordered by . cp 01:42 Discharged to home ambulatory. julio césar 01:42 Discharge instructions given to patient. 01:43 Patient left the ED. julio césar Signatures: Dispatcher [employer] EDAR Joyce Ghosh, RN RN Augie Wisdom PA PA cp Marsh, Wendy wm O'Farrell, Brenda, RN RN julio césar
--- NOTE | 2021-12-15 01:18 | EDPHYS ---
Physician Documentation [facility] Name: Chiara Urbano Age: 46 yrs Sex: Female : 1975 Arrival Date: 12/14/2021 Time: 23:25 Bed 19 Private MD: ED Physician Emili Mackenzie HPI: 12/15 00:10 This 46 yrs old Female presents to ER via Ambulatory with complaints of Cough. cp 00:10 The patient or guardian reports cough, that is constant, with productive sputum. Onset: cp The symptoms/episode began/occurred 7 day(s) ago. Severity of symptoms: in the emergency department the symptoms are unchanged. Associated signs and symptoms: Pertinent negatives: fever, sore throat. 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 - Social history:: Smoking status: Patient denies any tobacco usage or history of. ROS: 12/15 00:15 Constitutional: Negative for body aches, chills, fever, poor PO intake. cp 00:15 Eyes: Negative for injury, pain, redness, and discharge. cp 00:15 ENT: Positive for ear pain, Negative for drainage from ear(s), sore throat, difficulty swallowing, difficulty handling secretions. 00:15 Cardiovascular: Positive for chest pain, with cough, Negative for edema, palpitations. 00:15 Respiratory: Positive for cough, Negative for wheezing. 00:15 Abdomen/GI: Negative for abdominal pain, vomiting, diarrhea, constipation. 00:15 Neuro: Negative for altered mental status, headache, numbness, syncope, weakness. 00:15 All other systems are negative. Exam: 00:20 Constitutional: The patient appears in no acute distress, alert, awake, cp non-diaphoretic, non-toxic, well developed, well nourished, obese. 00:20 Head/Face: Normocephalic, atraumatic. cp 00:20 Eyes: Periorbital structures: appear normal, Conjunctiva: normal, no exudate, no cp injection, Sclera: no appreciated abnormality, Lids and lashes: appear normal, bilaterally. 00:20 ENT: External ear(s): are unremarkable, Ear canal(s): are normal, clear, TM's: dullness, bilaterally, Nose: is normal, Mouth: Lips: moist, Oral mucosa: moist, Posterior pharynx: Airway: no evidence of obstruction, patent. 00:20 Neck: ROM/movement: is normal, is supple, without pain, no range of motions limitations, Lymph nodes: no appreciated lymphadenopathy. 00:20 Chest/axilla: Inspection: normal. 00:20 Cardiovascular: Rate: tachycardic, Rhythm: regular, Edema: is not appreciated, JVD: is not appreciated. 00:20 Respiratory: the patient does not display signs of respiratory distress, Respirations: normal, no use of accessory muscles, no retractions, labored breathing, is not present, Breath sounds: bronchial sounds, that are mild, are heard diffusely, stridor, is not appreciated, + upper airway congestion. wheezing: is not appreciated. 00:20 Abdomen/GI: Inspection: abdomen appears normal, Palpation: abdomen is soft and non-tender, in all quadrants. 00:20 Back: pain, that is very mild, ROM is normal. Vital Signs: 12/14 23:42 BP 133 / 78; Pulse 100; Resp 18 S; Temp 98.4(O); Pulse Ox 96% on R/A; Weight 108.86 kg bb (R); Height 5 ft. 4 in. (162.56 cm) (R); Pain 9/10; 23:47 BP 125 / 74; Pulse 90; Resp 18; Temp 98.7; Pulse Ox 100% on R/A; julio césar 12/15 01:08 BP 139 / 80; Pulse 90; Resp 18; Pulse Ox 98% on R/A; Pain 0/10; julio césar 12/14 23:42 Body Mass Index 41.20 (108.86 kg, 162.56 cm) bb MDM: 12/14 23:44 Patient medically screened. cp 12/15 00:46 Test interpretation: by ED physician or midlevel provider: chest xray negative for cp focal pneumonia. 01:16 Data reviewed: vital signs, nurses notes, lab test result(s), radiologic studies, plain cp films. 12/15 00:10 Order name: COVID-19/FLU A+B (Document "Date of Onset" if Symptomatic) cp 12/15 00:10 Order name: XRAY Chest Pa And Lat (2 Views) cp Administered Medications: 00:15 Drug: Tussionex Pennkinetic ER (chlorpheniramine-hydrocodone) Suspension 5 ml Route: PO;julio césar 01:08 Follow up: Response: No adverse reaction julio césar 00:15 Drug: Zofran (Ondansetron) 4 mg Route: PO; julio césar 01:07 Follow up: Response: No adverse reaction julio césar 00:30 Drug: Albuterol - atroVENT (ipratropium) (3:1) (2.5 mg - 0.5 mg) 3 ml Route: Nebulizer; julio césar 01:07 Follow up: Response: No adverse reaction julio césar Disposition Summary: 12/15/21 01:17 Discharge Ordered Location: Home cp Problem: new cp Symptoms: have improved cp Condition: Stable cp Diagnosis - Acute bronchitis, unspecified cp Followup: cp - With: Private Physician - When: 2 - 3 days - Reason: Worsening of condition Discharge Instructions: - Discharge Summary Sheet cp - Acute Bronchitis, Adult cp Forms: - Medication Reconciliation Form cp - Thank You Letter cp - Antibiotic Education cp - Prescription Opioid Use cp Prescriptions: - albuterol sulfate 90 mcg/actuation Inhalation HFA aerosol inhaler - inhale 2 puff by INHALATION route every 6 hours; 1 Inhaler; Refills: 0, Product cp Selection Permitted - Prednisone 20 mg Oral Tablet - take 2 tablets by ORAL route once daily for 5 days; 10 tablet; Refills: 0, cp Product Selection Permitted - Guaifenesin AC 10-100 mg/5 mL Oral Liquid - take 10 milliliters by ORAL route every 4 hours As needed; 240 milliliter; cp Refills: 0, Product Selection Permitted Signatures: Dispatcher [employer] Joyce Ribeiro RN RN bb Page, Corey, PA PA cp Joyce Casas RN RN julio césar
[2021-12-15 05:30] VITALS: TEMP 98.7
[2021-12-15 05:31] VITALS: BP 139/80; O2SAT 98
--- NOTE | 2021-12-15 07:35 | RAD REPORT ---
EXAM DESCRIPTION: RAD - Chest Pa And Lat (2 Views) - 12/15/2021 12:36 am CLINICAL HISTORY: COUGH COMPARISON: No comparisons FINDINGS: Lines: None. Lungs: No evidence of edema or pneumonia. Pleural: No significant pleural effusions or pneumothorax. Cardiac: The heart size is within normal limits. Bones: No acute fractures. Other: IMPRESSION: No acute cardiopulmonary disease.
== END 2021-12-15 01:43 | disposition home or self-care (01) ==
LOC: ER 23:20
DX: J20.9 Acute bronchitis, unspecified (principal); Z20.822 Contact with and (suspected) exposure to COVID-19
CPT/HCPCS: 0240U; 71046; 94640; 99284

== ENCOUNTER 2022-08-29 08:50 | Day surgery (SDC) | payer OTHER ==
--- NOTE | 2022-08-27 14:11 | RAD REPORT ---
EXAM DESCRIPTION: RAD - Chest Pa And Lat (2 Views) - 08/27/2022 2:04 pm CLINICAL HISTORY: Pre op pending meniscectomy Chest pain. COMPARISON: Chest Pa And Lat (2 Views) dated 12/15/2021 FINDINGS: The lungs are clear. The heart is normal in size. No displaced fractures. IMPRESSION: No acute or concerning finding suspected.
[2022-08-27 14:31] LABS: Absolute Lymphocytes (CBC) 2.6 K/uL (0.7-4.9); Lymphocytes % 31.3 % (15.3-44.8); MCV 82.3 fL (80-100); MPV 7.2 fL (7.6-11.3); RBC Red Blood Cell Count 4.74 M/uL (3.86-4.86)
[2022-08-27 14:37] LABS: Protime INR 1.05
--- NOTE | 2022-08-28 08:23 | EKG ---
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
[2022-08-29] MEDS ORDERED: CEFAZOLIN SODIUM 2 GM/VIAL ONE (08:54)
[2022-08-29] MEDS ORDERED: Ringers Lactate 1,000 ML IV ONE (08:54)
[2022-08-29] MEDS ORDERED: BUPIVACAINE 0.25% PF 30 ML VIAL ONE (10:22)
[2022-08-29] MEDS ORDERED: FENTANYL CITR 100 MCG/2 ML ONE (10:43)
[2022-08-29] MEDS ORDERED: propofoL 200 MG/20 ML VIAL IV ONE (10:44)
[2022-08-29] MEDS ORDERED: LIDOCAINE 2% MPF 5 ML VIAL ONE (10:44)
[2022-08-29] MEDS ORDERED: dexAMETHasone 10 MG/ML VIAL ONE (10:44)
[2022-08-29] MEDS ORDERED: MIDAZOLAM HCL 2 MG/2 ML INJ ONE (10:44)
[2022-08-29] MEDS ORDERED: KETOROLAC 30 MG/ML INJ ONE (10:44)
[2022-08-29] MEDS ORDERED: ONDANSETRON 4 MG/2 ML VIAL ONE ×2 (10:44→12:12)
[2022-08-29] MEDS ORDERED: NS 0.9% VIAL 20 ML ONE (11:13)
[2022-08-29] MEDS ORDERED: HYDROCODONE/APAP 5/325 MG TAB ONE (12:59)
[2022-08-29 13:26] VITALS: O2SAT 95
[2022-08-29 13:46] VITALS: BP 125/68; TEMP 97.8
--- NOTE | 2022-08-29 19:44 | OP ---
Date of Procedure: 08/29/2022 Surgeon: Damian Figueredo MD Preoperative Diagnosis: Right knee medial meniscus tear. Postoperative Diagnosis: Right knee medial meniscus tear. Procedure Performed: Right knee arthroscopic partial medial meniscectomy. Anesthesia: General LMA. Fluids: Per Anesthesia record. Estimated Blood Loss: 3 cc. Complications: None. Implants: None. Tourniquet Time: 20 minutes at 300 mmHg. Indication For Procedure: Chiara is a 47-year-old female who presented to my clinic with signs, sym ptoms, and MRI findings consistent with right knee medial meniscus tear as well as some right knee os teoarthritis. I discussed with the patient at length risks and benefits associated with operative an d nonoperative treatment. She expressed understanding and elected to proceed with operative treatmen t. Description Of Procedure: After informed consent was obtained, the patient was identified in the pre op holding area. The right lower extremity was marked. The patient was then brought back to the ope rating room, transferred to the operating table in supine fashion, and placed under general LMA anest hesia. The right lower extremity was then prepped and draped in usual sterile fashion. A time-out w as initiated. The correct patient and procedure were confirmed and identified. The patient did rece elizabeth her preoperative prophylactic antibiotics. The right lower extremity was exsanguinated and the t ourniquet was inflated to 300 mmHg. Standard anteromedial and anterolateral portals were created. T he arthroscope was brought in via the anterolateral portal and diagnostic arthroscopy was performed. The arthroscope was brought in via the anterolateral portal and brought up to patellofemoral joint. The patient did have some grade 2 chondromalacia changes of the trochlear groove. There were no loo se bodies found within the medial and lateral gutters. The arthroscope was then brought to the media l compartment. The patient was noted to have a complex tear of the medial meniscal body and posterio r horn. A partial medial meniscectomy was performed using meniscal biters and arthroscopic shaver un til smooth meniscal borders were obtained. Medial meniscus was then found to be stable to probe. Th e patient was noted to have some grade 3 and grade 4 chondromalacia changes of the medial femoral con dyle. There were no loose chondral flaps noted. The arthroscope was brought to the intercondylar no tc. The patient was noted to have an intact ACL and PCL. The arthroscope was then brought to the l ateral compartment where the patient was noted to have an intact lateral meniscus, which was stable t o probing and no significant chondromalacia noted to the lateral femoral condyle or lateral tibial pl ateau. Arthroscopic instruments were then removed without complication. Wounds were then irrigated thoroughly with normal saline. Skin was approximated using a 4-0 Monocryl. Sterile dressings were a pplied. Tourniquet was let down. The patient was awakened and transferred to PACU in stable conditi on. Postoperative Plan: The patient will be weightbearing as tolerated on the right lower extremity. e will follow up in 1 week for wound check. CV/MODL Voice ID: [id number] Report ID: [id number]
== END 2022-08-29 13:25 | disposition home or self-care (01) ==
LOC: OR 08:50
PROVIDERS: ATTEND Orthopaedic Surgery Sports Medicine
PROC: 0SBC4ZZ Excision of Right Knee Joint, Percutaneous Endoscopic Approach (ICD-10-PCS; principal; 2022-08-29 10:30)
DX: S83.241A Other tear of medial meniscus, current injury, right knee, initial encounter (principal); M17.11 Unilateral primary osteoarthritis, right knee; M25.561 Pain in right knee
CPT/HCPCS: 93005; 85025; 80048; 36415; 85610; 85730; 71046; 29881; J2704; J2001; J2250; J3010; J1100; A4216; J7120; J2405 ×2

== ENCOUNTER → 2023-10-13 | Emergency (ER) | payer OTHER ==
[~2023-10-13] MED LIST: KETOROLAC 30 MG/ML INJ ONE
--- NOTE | 2023-10-13 14:34 | RAD REPORT ---
EXAM DESCRIPTION: RAD - Chest Single View - 10/13/2023 2:10 pm CLINICAL HISTORY: BLUNT CHEST TRAUMA Chest pain. COMPARISON: <Comparisons> FINDINGS: Portable technique limits examination quality. The lungs are grossly clear. The heart is normal in size. No displaced fractures. IMPRESSION: No acute intrathoracic process suspected.
--- NOTE | 2023-10-13 14:44 | ER ---
Nurse's Notes [facility] Name: Chiara Urbano Age: 48 yrs Sex: Female : 1975 Arrival Date: 10/13/2023 Time: 11:32 Bed 8 Private MD: Diagnosis: Chest pain, unspecified Presentation: 10/13 11:45 Chief complaint: Was bending over reaching for an object from the couch 4 days ago when hb she felt and heard a pop in the right side of there chest, c/o right sided chest pain 05/23, pain is worse with movement and cough. Cough started today. Coronavirus screen: At this time, the client does not indicate any symptoms associated with coronavirus-19. Ebola Screen: No symptoms or risks identified at this time. Initial Sepsis Screen: Does the patient meet any 2 criteria? RR > 20 per min. No. Patient's initial sepsis screen is negative. Does the patient have a suspected source of infection? No. Patient's initial sepsis screen is negative. Risk Assessment: Do you want to hurt yourself or someone else? Patient reports no desire to harm self or others. Onset of symptoms was October 10, 2023. 11:45 Method Of Arrival: Ambulatory hb 11:45 Acuity: CLAUDIA 3 hb Historical: - Allergies: 11:46 No Known Allergies; hb - PMHx: 11:46 DM2; hb - PSHx: 11:46 section; Total abdominal hysterectomy; Knee - Right; hb - Immunization history:: Client reports having NOT received the Covid vaccine. Flu vaccine is not up to date. Patient has never been vaccinated. - Social history:: Smoking status: Patient denies any tobacco usage or history of. - Family history:: not pertinent. - Hospitalizations: : No recent hospitalization is reported. Screenin:48 [facility] ED Fall Risk Assessment (Adult) History of falling in the last 3 months, ld1 including since admission No falls in past 3 months (0 pts). Abuse screen: Denies threats or abuse. Denies injuries from another. Nutritional screening: No deficits noted. Tuberculosis screening: No symptoms or risk factors identified. Assessment: 11:48 General: Appears in no apparent distress. comfortable, Behavior is calm, cooperative, ld1 appropriate for age. Pain: Complains of pain in chest Pain does not radiate. Pain currently is 8 out of 10 on a pain scale. Quality of pain is described as throbbing, Pain began suddenly, Is continuous. Neuro: Level of Consciousness is awake, alert, obeys commands, Oriented to person, place, time, situation. Cardiovascular: Capillary refill < 3 seconds Patient's skin is warm and dry. Rhythm is sinus rhythm Chest pain is described as mild. Respiratory: Airway is patent Respiratory effort is even, unlabored. GI: Abdomen is round non-distended. : No signs and/or symptoms were reported regarding the genitourinary system. EENT: No signs and/or symptoms were reported regarding the EENT system. Derm: No signs and/or symptoms reported regarding the dermatologic system. Musculoskeletal: No signs and/or symptoms reported regarding the musculoskeletal system. Vital Signs: 11:45 BP 114 / 82; Pulse 73; Resp 24; Temp 98(O); Pulse Ox 97% on R/A; Weight 94.35 kg; hb Height 5 ft. 4 in. ; Pain 8/10; 11:48 BP 114 / 82; Pulse 79; Resp 18; Pulse Ox 96% on R/A; Pain 8/10; ld1 14:55 BP 121 / 79; Pulse 69; Resp 18; Pulse Ox 100% on R/A; ld1 11:45 Body Mass Index 35.70 (94.35 kg, 162.56 cm) hb 11:45 Pain Scale: Adult hb 11:48 Pain Scale: Adult ld1 ED Course: 11:35 Patient arrived in ED. ts1 11:36 Pavan Haley MD is Attending Physician. rn 11:46 Triage completed. hb 11:48 Patient has correct armband on for positive identification. Placed in gown. Bed in low ld1 position. Call light in reach. Side rails up X2. cafeteria monitor on. Pulse ox on. NIBP on. Door closed. Noise minimized. Warm blanket given. 11:48 No provider procedures requiring assistance completed. Patient maintains SpO2 ld1 saturation greater than 95% on room air. 11:49 Anabella Viramontes, HAWA is Primary Nurse. ld1 12:20 XRAY Chest (1 view) In Process Unspecified. EDMS 14:55 IV discontinued, intact, bleeding controlled, No redness/swelling at site. ld1 Administered Medications: 11:53 Drug: Ketorolac IM 30 mg IM once Route: IM; Site: right deltoid; ld1 Medication: 14:55 VIS not applicable for this client. ld1 Outcome: 14:43 Discharge ordered by . rn 14:54 Discharged to home ambulatory, ld1 14:54 Condition: stable 14:54 Discharge instructions given to patient, Instructed on discharge instructions, follow up and referral plans. Demonstrated understanding of instructions, follow-up care, medications, Prescriptions given X 1, 14:55 Patient left the ED. ld1 Signatures: Dispatcher [employer] EDMS Pavan Haley MD MD rn Baxter, Heather, RN RN Anabella Viramontes RN RN ld1 Taty Philippe PAS PAS ts1 Corrections: (The following items were deleted from the chart) 11:47 11:46 Home Meds: None; hb hb
--- NOTE | 2023-10-13 14:44 | EDPHYS ---
Physician Documentation [facility] Name: Chiara Urbano Age: 48 yrs Sex: Female : 1975 Arrival Date: 10/13/2023 Time: 11:32 Bed 8 Private MD: ED Physician Pavan Haley HPI: 10/13 11:50 This 48 yrs old Female presents to ER via Ambulatory with complaints of Chest rn Pain. 11:50 The patient or guardian reports chest pain that is located primarily in the anterior rn chest wall, right. 11:51 Onset: 4 day(s) ago. The pain does not radiate. Associated signs and symptoms: rn Pertinent negatives: abdominal pain, cough, lower extremity swelling, near syncope, palpitations, shortness of breath, syncope, vomiting. The chest pain is described as sharp. Duration: The patient or guardian reports multiple episodes, that are intermittent. Modifying factors: The symptoms are alleviated by remaining still, the symptoms are aggravated by activity, movement, twisting torso. Severity of pain: At its worst the pain was moderate in the emergency department the pain is unchanged. The patient has not experienced similar symptoms in the past. Patient reports reaching over couch, rested chest on arm of couch, felt a pop and has been having right breast/chest pain since then. Worse with palpation and movement/sweeping/cleaning. No difficulty breathing. No cough. No fever. No fall. No history of cardiac problems. No lung problems. No abdominal pain or complaints.. Historical: - Allergies: 11:46 No Known Allergies; hb - PMHx: 11:46 DM2; hb - PSHx: 11:46 section; Total abdominal hysterectomy; Knee - Right; hb - Immunization history:: Client reports having NOT received the Covid vaccine. Flu vaccine is not up to date. Patient has never been vaccinated. - Social history:: Smoking status: Patient denies any tobacco usage or history of. - Family history:: not pertinent. - Hospitalizations: : No recent hospitalization is reported. ROS: 11:51 Constitutional: Negative for fever, chills, and weight loss, Neck: Negative for injury, rn pain, and swelling, Cardiovascular: Positive for chest pain Respiratory: Negative for shortness of breath, cough, wheezing, and pleuritic chest pain, Abdomen/GI: Negative for abdominal pain, nausea, vomiting, diarrhea, and constipation, MS/Extremity: Negative for injury and deformity, Skin: Negative for injury, rash, and discoloration, Neuro: Negative for headache, weakness, numbness, tingling, and seizure, Exam: 11:51 Constitutional: This is a well developed, well nourished patient who is awake, alert, rn and in no acute distress. Cardiovascular: Regular rate and rhythm. No gallops, murmurs, or rubs. No pulse deficits. Respiratory: Clear bilateral breath sounds. No increased work of breathing, no retractions or nasal flaring. Abdomen/GI: Soft, nontender, no right upper quadrant tenderness Neuro: Awake and alert, GCS 15 13:17 ECG was reviewed by the Attending Physician. rn Vital Signs: 11:45 BP 114 / 82; Pulse 73; Resp 24; Temp 98(O); Pulse Ox 97% on R/A; Weight 94.35 kg; hb Height 5 ft. 4 in. ; Pain 8/10; 11:48 BP 114 / 82; Pulse 79; Resp 18; Pulse Ox 96% on R/A; Pain 8/10; ld1 14:55 BP 121 / 79; Pulse 69; Resp 18; Pulse Ox 100% on R/A; ld1 11:45 Body Mass Index 35.70 (94.35 kg, 162.56 cm) hb 11:45 Pain Scale: Adult hb 11:48 Pain Scale: Adult ld1 MDM: 11:36 Patient medically screened. rn 14:42 Differential diagnosis: acute pericarditis, anxiety, chest wall pain, pericarditis, rn pleurisy, pneumonia, pneumothorax. Data reviewed: vital signs, nurses notes, EKG, radiologic studies, plain films, and as a result, I will discharge patient. Special discussion: Based on the patient's history, exam, and Dx evaluation, there is no indication for emergent intervention or inpatient Tx. It is understood by the patient/guardian that if the Sx's persist or worsen they need to return immediately for re-evaluation. I discussed with the patient/guardian in detail that at this point there is no indication for admission to the hospital. It is understood, however, that if the symptoms persist or worsen the patient needs to return immediately for re-evaluation. ED course: No acute findings on chest x-ray or EKG. Most likely chest wall injury. Will discharge home with return precautions. 10/13 11:49 Order name: XRAY Chest (1 view); Complete Time: 14:42 rn 10/13 11:49 Order name: EKG; Complete Time: 11:49 rn 10/13 11:49 Order name: EKG - Nurse/Tech; Complete Time: 11:50 rn EC:17 Rate is 72 beats/min. Rhythm is regular. QRS [place] is Normal. UT interval is normal. QRS rn interval is normal. QT interval is normal. No Q waves. T waves are Normal. No ST changes noted. Clinical impression: Normal ECG. Interpreted by me. Reviewed by me. Administered Medications: 11:53 Drug: Ketorolac IM 30 mg IM once Route: IM; Site: right deltoid; ld1 Disposition Summary: 10/13/23 14:43 Discharge Ordered Notes: Location: Home rn Problem: new rn Symptoms: have improved rn Condition: Stable rn Diagnosis - Chest pain, unspecified rn Followup: rn - With: Private Physician - When: As needed - Reason: Recheck today's complaints, Re-evaluation by your physician Discharge Instructions: - Discharge Summary Sheet rn - Nonspecific Chest Pain, Adult rn - Chest Wall Pain rn Forms: - Medication Reconciliation Form rn - Thank You Letter rn - Antibiotic rn womens health - Prescription Opioid Use rn - Patient Portal Instructions rn - Leadership Thank You Letter rn Prescriptions: - Cyclobenzaprine 10 mg Oral tablet - take 1 tablet ORAL route every 8 hours As needed; 12 tablet; Refills: 0, rn Product Selection Permitted Signatures: Dispatcher [employer] EDID Pavan Haley MD MD rn Baxter, Heather, RN RN hb Sims, Lauren, RN RN ld1 Corrections: (The following items were deleted from the chart) 11:47 11:46 Home Meds: None; hb hb
[2023-10-13 15:02] VITALS: BP 121/79; TEMP 98; O2SAT 100
== END ==
LOC: ER 11:32
DX: R07.89 Other chest pain (principal); E11.9 Type 2 diabetes mellitus without complications; Z28.310 Unvaccinated for COVID-19
CPT/HCPCS: 71045; 93005; 96372; 99285

== ENCOUNTER 2025-01-20 16:15 | Emergency (ER) | payer OTHER, SELFPAY ==
--- NOTE | 2025-01-20 18:01 | RAD REPORT ---
EXAM: XR Knee Left 3 View HISTORY: [facility] MAIN PAIN Bed Name: IW3 COMPARISON: None TECHNIQUE: 3 views of the left knee were obtained. FINDINGS: Moderate knee effusion is seen. There is no evidence of acute fracture or dislocation. No significant degenerative changes are seen. No soft tissue swelling or other soft tissue abnormality is present. IMPRESSION: No evidence of acute osseous abnormality.
--- NOTE | 2025-01-20 19:00 | EDPHYS ---
Physician Documentation [facility] Name: Chiara Garza Age: 49 yrs Sex: Female : 1975 Arrival Date: 01/20/2025 Time: 16:15 Bed IW1 Private MD: ED Physician Johnnie Viramontes HPI: 01/20 19:13 This 49 yrs old Female presents to ER via Ambulatory with complaints of Knee kb Pain. 19:13 Pt is a 49 year old female who presents for left knee pain that started in August and kb has gotten progressively worse. States she bent it wrong when the pain initially started in August. Denies trauma, fall. Historical: - Allergies: 16:33 No Known Allergies; iw - PMHx: 16:33 None; iw - PSHx: 16:33 section; Knee - Right; Total abdominal hysterectomy; iw - Immunization history:: Adult Immunizations not up to date. - Infectious Disease History:: Denies. - Social history:: Smoking status: Patient denies any tobacco usage or history of. ROS: 19:08 Constitutional: As per HPI kb Exam: 19:11 Constitutional: This is a well developed, well nourished patient who is awake, alert, kb and in no acute distress. Head/Face: Normocephalic, atraumatic. ENT: Moist Mucous membranes Cardiovascular: Regular rate Respiratory: Respirations even and unlabored. No increased work of breathing. Talking in full sentences Skin: Warm, dry with normal turgor. Normal color. Neuro: Awake and alert, GCS 15, oriented to person, place, time, and situation. 19:11 Musculoskeletal/extremity: Extremities: grossly normal except: noted in the lateral aspect of left knee: pain, ROM: intact in all extremities, Circulation is intact in all extremities. Sensation intact. Weight bearing: able to fully bear weight, Vital Signs: 16:31 BP 131 / 50; Pulse 83; Resp 18; Temp 97.8; Pulse Ox 96% ; Weight 105.23 kg; Height 5 iw ft. 4 in. ; Pain 9/10; 16:31 Body Mass Index 39.82 (105.23 kg, 162.56 cm) iw 16:31 Pain Scale: Adult iw MDM: 16:20 Medical Screening Exam initiated kb 19:13 Differential diagnosis: contusion, laceration, sprain, strain. Data reviewed: vital kb signs, nurses notes. Counseling: I had a detailed discussion with the patient and/or guardian regarding the historical points, exam findings, and any diagnostic results supporting the discharge/admit diagnosis, radiology results, the need for outpatient follow up, a family practitioner, to return to the emergency department if symptoms worsen or persist or if there are any questions or concerns that arise at home. ED course: Pt educated to follow up with ortho for continued pain and possible MRI. Pt will follow up with Dr Figueredo. 01/20 16:33 Order name: Knee Left 3 View XRAY; Complete Time: 18:07 kb Administered Medications: 19: Drug: HYDROcodone-acetaminophen PO 5 mg-325 mg 1 tabs PO once Route: PO; bm8 19:09 Drug: Ibuprofen PO 600 mg PO once Route: PO; bm8 Disposition: 21:49 I was immediately available on-site in the Emergency Department for consultation in the ms3 care of the patient. Disposition Summary: 01/20/25 18:59 Discharge Ordered Notes: Location: Home kb Condition: Stable kb Diagnosis - Pain in left knee kb Followup: kb - With: Emergency Department - When: As needed - Reason: Worsening of condition Followup: kb - With: Private Physician - When: 2 - 3 days - Reason: Recheck today's complaints, Continuance of care, Re-evaluation by your physician Discharge Instructions: - Discharge Summary Sheet kb - Acute Knee Pain, Adult, [id number] kb Forms: - Medication Reconciliation Form kb - Antibiotic Education kb - Prescription Opioid Use kb - Patient Portal Instructions kb - Leadership Thank You Letter kb Prescriptions: - Diclofenac Sodium 75 mg Oral tablet, delayed release (enteric coated) - take 1 tablet ORAL route 2 times per day As needed; 30 tablet; Refills: 0, kb Product Selection Permitted Signatures: Dispatcher [employer] Emilie Lake, EKATERINA PEREZP-Yudy Sharpe, RN RN Johnnie Callaway DO DO ms3 Long Cantrell RN RN bm8
--- NOTE | 2025-01-20 19:00 | ER ---
Nurse's Notes [facility] Name: Chiara Garza Age: 49 yrs Sex: Female : 1975 Arrival Date: 01/20/2025 Time: 16:15 Bed IW1 Private MD: Diagnosis: Pain in left knee Presentation: 01/20 16:31 Chief complaint: Patient states: injured her left knee in August and it has been iw hurting since then , was walking last week and the pain got worse and there is some swelling. Coronavirus screen: At this time, the client does not indicate any symptoms associated with coronavirus-19. Ebola Screen: No symptoms or risks identified at this time. Initial Sepsis Screen: Does the patient meet any 2 criteria? No. Patient's initial sepsis screen is negative. Does the patient have a suspected source of infection? No. Patient's initial sepsis screen is negative. Risk Assessment: Do you want to hurt yourself or someone else? Patient reports no desire to harm self or others. Onset of symptoms was August 2024. 16:31 Method Of Arrival: Ambulatory iw 16:31 Acuity: CLAUDIA 4 iw Historical: - Allergies: 16:33 No Known Allergies; iw - PMHx: 16:33 None; iw - PSHx: 16:33 section; Knee - Right; Total abdominal hysterectomy; iw - Immunization history:: Adult Immunizations not up to date. - Infectious Disease History:: Denies. - Social history:: Smoking status: Patient denies any tobacco usage or history of. Screenin:14 [facility] ED Fall Risk Assessment (Adult) History of falling in the last 3 months, iw including since admission Yes- single mechanical fall (1 pt) Confusion or Disorientation No (0 pts) Intoxicated or Sedated No (0 pts) Impaired Gait No (0 pts) Mobility Assist Device Used No (0 pt) Altered Elimination No (0 pt) Score/Fall Risk Level 0 - 2 = Low Risk Oriented to surroundings. Abuse screen: Denies threats or abuse. Denies injuries from another. Nutritional screening: No deficits noted. Tuberculosis screening: No symptoms or risk factors identified. Assessment: 18:15 General: Appears in no apparent distress. Behavior is calm, cooperative. Pain: iw Complains of pain in left leg and lateral aspect of left knee. Neuro: Level of Consciousness is awake, alert, obeys commands, Oriented to person, place, time, situation. Cardiovascular: Patient's skin is warm and dry. Respiratory: Respiratory effort is even, unlabored, Respiratory pattern is regular, symmetrical. Derm: Skin is intact, is healthy with good turgor. Musculoskeletal: Range of motion: limited in lateral aspect of left knee. Vital Signs: 16:31 BP 131 / 50; Pulse 83; Resp 18; Temp 97.8; Pulse Ox 96% ; Weight 105.23 kg; Height 5 iw ft. 4 in. ; Pain 9/10; 16:31 Body Mass Index 39.82 (105.23 kg, 162.56 cm) iw 16:31 Pain Scale: Adult iw ED Course: 16:19 Patient arrived in ED. al6 16:19 Emilie Stuart FNP-C is PHCP. kb 16:20 Johnnie Viramontes DO is Attending Physician. kb 16:32 Triage completed. iw 16:33 Arm band placed on. iw 17:23 Knee Left 3 View XRAY In Process Unspecified. EDMS 19:07 Yudy Ziegler, RN is Primary Nurse. iw 19:14 No provider procedures requiring assistance completed. Patient did not have IV access iw during this emergency room visit. Administered Medications: 19:09 Drug: HYDROcodone-acetaminophen PO 5 mg-325 mg 1 tabs PO once Route: PO; bm8 19:09 Drug: Ibuprofen PO 600 mg PO once Route: PO; bm8 Outcome: 18:59 Discharge ordered by MD. kb 19:13 Discharged to home ambulatory, iw 19:13 Condition: good 19:13 Discharge instructions given to patient, Instructed on discharge instructions, follow up and referral plans. medication usage, Demonstrated understanding of instructions, follow-up care, medications, Prescriptions given X 1, 19:16 Patient left the ED. dd2 Signatures: Dispatcher [employer] EDMS Emilie Stuart FNP-C FNP-Yudy Sharpe RN RN iw Long Cantrell RN RN bm8 JASON OLIVER RN RN dd2 Hamida Brown al6 Corrections: (The following items were deleted from the chart) 16:33 16:31 Pulse 83bpm; Resp 18bpm; Pulse Ox 96%; Temp 97.8F; iw iw
[2025-01-20] MEDS ORDERED: IBUPROFEN 400 MG TAB ONE (19:04)
[2025-01-20] MEDS ORDERED: IBUPROFEN 200 MG TAB PO ONE (19:04)
[2025-01-20] MEDS ORDERED: HYDROCODONE/APAP 5/325 MG TAB ONE (19:04)
[2025-01-20 19:21] VITALS: BP 131/50; TEMP 97.8; O2SAT 96
== END 2025-01-20 19:16 | disposition home or self-care (01) ==
LOC: ER 16:15
DX: M25.562 Pain in left knee (principal)